=== PATIENT | male | born 1965 | race Caucasian/White ===

== ENCOUNTER 2020-03-27 09:32 | Emergency (ER) | payer OTHER, SELFPAY ==
--- NOTE | ~2020-03-27 | CT_ITS ---
EXAMINATION: CT brain wo con DATE: 03/27/2020 10:34 INDICATION: Seizure. TECHNIQUE: Computed tomography (CT) of the head was performed without intravenous contrast. The mA wa s adjusted according to patient size. Iterative reconstruction technique was employed. The dose-lengt h product was 681.00 mGy-cm. COMPARISON: None FINDINGS: There is an old lacunar infarct in left caudate nucleus. There is no intracranial hemorrhag e, acute infarction, or abnormal intracranial mass lesion. The ventricles are normal in size. The orb its are normal. There is mild mucosal thickening in the paranasal sinuses. The mastoid air cells are normal. IMPRESSION: 1. Old lacunar infarct in left caudate nucleus. Reviewed, dictated and finalized at location B.
--- NOTE | ~2020-03-27 | XR_ITS ---
EXAMINATION: 1. XR tibia fibula LT 2V 2. XR foot LT min 3V 3. XR ankle LT 2V DATE: 03/27/2020 10:17 INDICATION: Left lower leg, ankle, and foot injury. TECHNIQUE: 2 views of left tibia and fibula, 2 views of left ankle, and 4 views of left foot were obt ained. COMPARISON: Left tibia and fibula and ankle radiographs 07/13/2018 FINDINGS: LEFT ANKLE: There is a comminuted fracture of tibial plafond with incongruence of the articular surfa ce. There is an oblique fracture of distal fibula with medial aspect of the fracture line 2 mm proxim al to the level of the tibial plafond. The distal fracture fragment demonstrates 2 mm medial displace ment and 15 degrees posterior angulation. The talar dome is intact. There is ankle soft tissue swelli ng. LEFT TIBIA/FIBULA: There is an old healed fracture of distal tibial diaphysis with internal fixation with intramedullary lois and proximal and distal interlocking screws. Again seen are the fractures of the tibial plafond and distal fibula. There is mild left knee tricompartmental osteoarthritis. No kne e joint effusion. LEFT FOOT: Bone alignment is normal. No fracture. There is mild osteoarthritis of first metatarsophal angeal joint and some of the interphalangeal joints and midfoot joints. There is an enthesophyte at p osterior aspect of calcaneal tuberosity. IMPRESSION: 1. Comminuted fracture of the tibial plafond. 2. Oblique fracture of distal fibula. 3. Polyarticular osteoarthritis. Reviewed, dictated and finalized at location B. IMPRESSION: 1. Comminuted fracture of the tibial plafond. 2. Oblique fracture of distal fibula. 3. Polyarticular osteoarthritis. IMPRESSION: 1. Comminuted fracture of the tibial plafond. 2. Oblique fracture of distal fibula. 3. Polyarticular osteoarthritis.
--- NOTE | ~2020-03-27 | XR_ITS ---
EXAMINATION: XR chest 2V DATE: 03/27/2020 10:17 INDICATION: Seizure. TECHNIQUE: Frontal and lateral views of the chest were obtained. COMPARISON: None. FINDINGS: The chest demonstrates clear lungs without pneumonia, pleural effusion, or pneumothorax. Th e heart size is normal. IMPRESSION: 1. No acute cardiopulmonary disease. Reviewed, dictated and finalized at location B.
[2020-03-27 09:37] VITALS: BP 138/103; PULSE 123; RESP 18; TEMP 36.8; O2SAT 98
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
--- NOTE | 2020-03-27 09:56 | ECG_ITS ---
Measurements Intervals [place] Rate: 104 P: 61 OK: 148 QRS: -20 QRSD: 86 T: 63 QT: 356 QTc: 470 Interpretive Statements SINUS TACHYCARDIA BASELINE ARTIFACT- V4-V5 BORDERLINE ECG Electronically Signed On 03-27-2020 10:55:45 CDT by Dain Choudhary D.O.
[2020-03-27] MEDS: SODIUM CHLORIDE 0.9% IV 1,000 ML 999 ML IV CONT (10:21)
[2020-03-27] MEDS: MORPHINE SULFATE 4 MG/ML INJ IV PUSH ×2 (10:22→12:43)
[2020-03-27] MEDS: ONDANSETRON INJ 4 MG/2 ML VIAL IV PUSH (10:22)
[2020-03-27 10:36] LABS: Basophils Percent Auto 0.2 % (0.2-1.2); Eosinophils Percent Auto 0.2 % (0-4.4); Hematocrit 49.1 % (42.0-52.0); Hemoglobin 17.7 g/dL (14.0-18.0); Immature Granulocyte Absolute 0.04 K/mm3 (0.00-0.031); Immature Granulocyte Percent A 0.4 % (0-0.5); Immature Platelet Fraction Pct 9.9 % (0.9-11.2); Lymphocytes Absolute Auto 0.72 K/mm3 (0.9-3.2); Mean Corpuscular Hemoglobin 32.5 pg (26-34); Mean Corpuscular Volume 90.1 fl (80-100); Mean Platelet Volume 10.5 fl (7.4-10.4); Monocytes Absolute Auto 0.4 K/mm3 (0.1-0.6); Monocytes Percent Auto 4.2 % (2.6-8.5); Neutrophils Absolute Auto 7.9 K/mm3 (1.3-6.7); Platelet Count Result 62 k/mm3 (150-375); Red Blood Count 5.45 M/mm3 (4.6-6.20); Red Cell Distribution Width 15.6 % (11.5-14.5)
[2020-03-27 10:49] VITALS: BP 127/82; PULSE 102; RESP 15; O2SAT 98
[2020-03-27 11:03] LABS: Anion Gap 10 mmol/L (8-16); Blood Urea Nitrogen 15 mg/dL (9-20); Calcium 8.6 mg/dL (8.4-10.2); Carbon Dioxide 36 mmol/L (22-30); Chloride 81 mmol/L (98-107); Estimated Glomerular Filt Rate > 60; Glucose 97 mg/dL (75-110); Potassium 2.3 mmol/L (3.4-5.0); Sodium 127 mmol/L (137-145)
[2020-03-27] MEDS: POTASSIUM CHLORIDE 20 MEQ PACKET (FOR LIQUID) 40 MEQ PO (11:37)
[2020-03-27 12:03] LABS: Add Urine Microscopic? YES; Appearance Urine Clear (Clear); Bacteria Urine Trace /hpf; Bilirubin Urine Negative (Negative); Blood Urine Negative (Negative); Color Urine Yellow (Yellow); Glucose Urine UA Negative (Negative); Ketones Urine Negative (Negative); Leukocyte Esterase Ur Trace LEU/UL (Negative); Nitrate Urine Negative (Negative); Protein Urine Negative (Negative); RBC Urine 0-2 /hpf (0-2); Specific Grav Ur 1.011 (1.001-1.035); Squamous Epithelial Cell Urine Rare /hpf (Few); WBC Urine 0-3 /hpf
[2020-03-27 12:06] LABS: Amphetamine Screen Urine Negative (Negative); Barbiturate Screen Urine Negative (Negative); Benzodiazepines Screen Urine Negative (Negative); Cannabinoid Screen Urine Negative (Negative); Cocaine Screen Urine Negative (Negative); Methadone Screen Urine Negative (Negative); Opiate Screen Urine Positive (Negative); Phencyclidine Screen Urine Negative (Negative)
[2020-03-27 12:28] VITALS: BP 121/98; PULSE 95; RESP 18; O2SAT 99
--- NOTE | 2020-03-27 12:39 | PC.NURSE ---
Report called to [facility], Shellie GRAY took report
[2020-03-27 13:20] VITALS: BP 114/86; PULSE 96; RESP 18; O2SAT 100
== END 2020-03-27 13:21 | disposition short-term general hospital (02) ==
PROVIDERS: Emergency Provider Emergency Medicine; PCP Physician Assistant
DX: S82.872A Displaced pilon fracture of left tibia, initial encounter for closed fracture (principal); S82.832A Other fracture of upper and lower end of left fibula, initial encounter for closed fracture; I10 Essential (primary) hypertension; F17.210 Nicotine dependence, cigarettes, uncomplicated; R56.9 Unspecified convulsions; E87.6 Hypokalemia; R00.0 Tachycardia, unspecified; M19.072 Primary osteoarthritis, left ankle and foot; W06.XXXA Fall from bed, initial encounter
CPT/HCPCS: 29515; 36415; 70450; 71046; 73590; 73600; 73630; 80048; 80307; 81001; 85025; 85055; 93005; 96361; 96374; 96375; 96376; 99285; A9270; J0131; J2270; J2405; J7030

== ENCOUNTER 2020-08-31 22:12 | Emergency (ER) | payer OTHER, SELFPAY ==
--- NOTE | ~2020-08-31 | CT_ITS ---
EXAMINATION: CTA chest PE protocol DATE: 08/31/2020 23:38 INDICATION: Chest pain TECHNIQUE: Computed tomography (CT) pulmonary angiogram of the chest was performed with 100 mL Omnipa que-350 intravenous contrast. Additional 3D reconstructions utilizing coronal maximum intensity proje ction (MIP) were performed. Automated exposure control and iterative reconstruction technique were em ployed. The dose-length product was 284.68 mGy-cm. COMPARISON: None FINDINGS: Excellent contrast opacification of the pulmonary arteries. There is moderate streak artifact from de nse contrast in the superior vena cava and right atrium. Minimal scattered respiratory motion artifac t which does not significantly limit evaluation. No pulmonary embolism. Moderate to severe upper lobe predominant emphysema. No pneumonia, pulmonary edema, pleural effusion or pneumothorax. Heart size i s normal. Atherosclerotic coronary artery calcific lesions. No pericardial effusion. Thoracic aorta i s normal in caliber with no dissection. No pathologically enlarged thoracic lymphadenopathy. Diffuse hepatic steatosis. Chronic appearing mild anterior wedging at T8, T9, T11 and L1. Relatively recent-a ppearing anterior left fourth and fifth rib fractures. IMPRESSION: 1. No pulmonary embolism or other acute cardiopulmonary disease. 2. Moderate to severe emphysema. Fine 3. Relatively recent-appearing anterior left fourth and fifth rib fractures. Correlate for point tend erness approximately 4 cm lateral to the left nipple. Reviewed, dictated and finalized at location A. PRODUCTION SUPERVISOR IMPRESSION: 1. No pulmonary embolism or other acute cardiopulmonary disease. 2. Moderate to severe emphysema. Fine 3. Relatively recent-appearing anterior left fourth and fifth rib fractures. Co rrelate for point tenderness approximately 4 cm lateral to the left nipple.
--- NOTE | ~2020-08-31 | XR_ITS ---
EXAMINATION: XR chest 2V DATE: 08/31/2020 23:03 INDICATION: Midsternal chest pain TECHNIQUE: PA and lateral views of the chest were obtained. COMPARISON: Chest radiograph dated 03/27/20 FINDINGS: The lungs remain clear with no focal airspace opacities, pulmonary edema, pleural effusion or pneumot horax. The cardiomediastinal silhouette is normal. Thoracic kyphosis with severe spondylosis. IMPRESSION: 1. No acute cardiopulmonary disease. Reviewed, dictated and finalized at location A. RT SETTER
[2020-08-31 22:17] VITALS: BP 165/126; PULSE 113; RESP 23; TEMP 36.8; O2SAT 96
--- NOTE | 2020-08-31 22:27 | ECG_ITS ---
Measurements Intervals [place] Rate: 109 P: 76 CT: 142 QRS: -37 QRSD: 93 T: 87 QT: 336 QTc: 454 Interpretive Statements SINUS TACHYCARDIA LEFT AXIS DEVIATION BASELINE WANDER- I, II, AVR, AVL, V5-V6 ABNORMAL ECG Electronically Signed On 09-01-2020 8:04:29 SETUP TECHNICIAN by Dain Choudhary D.O.
[2020-08-31 22:30] VITALS: BP 180/125; PULSE 108; RESP 17; O2SAT 97
[2020-08-31] MEDS: ASPIRIN 81 MG CHEWABLE TABLET 324 MG PO (22:41)
[2020-08-31 22:42] LABS: Basophils Absolute Auto 0.1 K/mm3 (0.0-0.1); Basophils Percent Auto 0.6 % (0.2-1.2); Eosinophils Absolute Auto 0.1 K/mm3 (0-0.3); Eosinophils Percent Auto 1.2 % (0-4.4); Hematocrit 52.4 % (42.0-52.0); Hemoglobin 18.4 g/dL (14.0-18.0); Immature Granulocyte Absolute 0.04 K/mm3 (0.00-0.031); Immature Granulocyte Percent A 0.4 % (0-0.5); Lymphocytes Absolute Auto 2.81 K/mm3 (0.9-3.2); Lymphocytes Percent Auto 28.3 % (18.3-44.2); Mean Corpuscular HGB Conc 35.1 g/dl (32-36); Mean Corpuscular Hemoglobin 33.2 pg (26-34); Mean Corpuscular Volume 94.4 fl (80-100); Mean Platelet Volume 8.3 fl (7.4-10.4); Monocytes Absolute Auto 0.5 K/mm3 (0.1-0.6); Monocytes Percent Auto 4.6 % (2.6-8.5); Neutrophils Absolute Auto 6.5 K/mm3 (1.3-6.7); Neutrophils Percent Auto 64.9 % (45.5-73.1); Platelet Count Result 305 k/mm3 (150-375); Red Blood Count 5.55 M/mm3 (4.6-6.20); White Blood Count 9.9 K/mm3 (4.5-10.0)
[2020-08-31] MEDS: NITROGLYCERIN SL 0.4 MG TABLET SUBLINGUAL (22:43)
[2020-08-31 22:45] VITALS: BP 120/94; PULSE 122; RESP 22; O2SAT 96
[2020-08-31 22:52] LABS: INR 0.9; Prothrombin Time 12.3 Seconds (11.1-14.7)
[2020-08-31 22:53] LABS: Anion Gap 11 mmol/L (8-16); Blood Urea Nitrogen 7 mg/dL (9-20); Calcium 9.3 mg/dL (8.4-10.2); Carbon Dioxide 31 mmol/L (22-30); Chloride 102 mmol/L (98-107); Estimated Glomerular Filt Rate > 60; Glucose 111 mg/dL (75-110); Partial Thromboplastin Time 26.7 SECONDS (22.3-36.8); Potassium 4.1 mmol/L (3.4-5.0); Sodium 144 mmol/L (137-145)
--- NOTE | 2020-08-31 22:59 | ED.CHESTPAIN ---
HPI - Chest Pain General Chief Complaint: Chest Pain Stated Complaint: chest pain x1hr Time Seen by Provider: 08/31/20 22:20 History of Present Illness HPI narrative: Left sided chest pain since yesterday. No radiation. Sharp in quality. Associated with SOB. He has never had this pain before. No cough, congestion, fever. Related Data Home Medications Medication Instructions Recorded Confirmed amlodipine 5 mg PO 08/31/20 Allergies Allergy/AdvReac Type Severity Reaction Status Date / Time venom-honey bee Allergy Unknown Verified 07/13/18 18:15 Review of Systems Review of Systems: All systems reviewed & are unremarkable except as noted in HPI and below Constitutional: Constitutional: Denies chills Cardiovascular: Cardiovascular: Reports chest pain Respiratory: Respiratory: Reports dyspnea Gastrointestinal: Gastrointestinal: Denies abdominal pain Musculoskeletal: Musculoskeletal: Reports no additional musculoskeletal complaints Neurologic: Denies dizziness PMFSH Past Medical History Medical History History of fracture of leg Hypertension Leg fracture, left Seizure Family History Family History Father Family history of heart disease in male family member before age 55 Social History Social History Smoking status: Current every day smoker Tobacco type: cigarettes Alcohol intake: former Substance use: never Gender identity (if verbalized by the patient): Male Exam Const: General: no acute distress and alert; No acute distress Nutritional Appearance: average body habitus Orientation/consciousness: patient oriented x3 HENMT: Head: normal to inspection Chest: Chest palpation & inspection: tenderness rib (left) Resp: Effort & Inspection: normal respiratory effort and able to speak in complete sentences Cardio: Rate: tachycardic Rhythm: regular rhythm GI: Inspection: normal to inspection and non-distended GI Palp: No Tenderness to palpation present (GI) Skin: General skin exam: normal color Neuro: General: patient oriented x3, moves all extremities and CN's II-XI intact bilaterally Speech: Abnormal speech present slurred Motor exam (neuro): 5/5 motor strength present throughout Extrem: Left lower extremity: lower leg and ankle Details: pitting edema (left) Details: 1+ Course Vital Signs Vital signs: Vital Signs Temperature 36.8 C 08/31/20 22:17 Pulse Rate 113 H 08/31/20 22:17 Respiratory Rate 23 H 08/31/20 22:17 Blood Pressure 165/126 H 08/31/20 22:17 Pulse Oximetry 96 08/31/20 22:17 Temperature 36.8 C 08/31/20 22:17 Pulse Rate 110 H 09/01/20 01:30 Respiratory Rate 17 09/01/20 01:30 Blood Pressure 147/109 H 09/01/20 01:30 Pulse Oximetry 96 09/01/20 01:30 MDM - Chest Pain MDM Narrative Medical decision making narrative: CBC appears concentrated. Fluids given. Pain present for several hours prior to arrival and troponin w/i normal limits. Nothing acute on EKG. HE does have 2 new rib fractures. He does not know how he got these, but they are in the location where he is reporting pain. Differential Diagnosis Differential diagnosis: Likely fracture of rib, atypical chest pain, st elevation myocardial infarction and chest pain Medical Records Data Attestation: I reviewed the patient's medical records. Lab Data Attestation: I reviewed the patient's lab results. Result diagrams: 08/31/20 22:35 08/31/20 22:35 Labs: Lab Results 08/31/20 08/31/20 08/31/20 Range/Units 22:35 22:35 22:35 WBC 9.9 (4.5-10.0) K/mm3 RBC 5.55 (4.6-6.20) M/mm3 Hgb 18.4 H (14.0-18.0) g/dL Hct 52.4 H (42.0-52.0) % MCV 94.4 (80-100) fl MCH 33.2 (26-34) pg MCHC 35.1 (32-36) g/dl RDW 15.0 H (11.5-14.5) % Plt Count 305 D (150-
[2020-08-31 23:00] VITALS: BP 155/110; PULSE 118; RESP 18; O2SAT 94
[2020-08-31 23:05] LABS: Troponin I 0.021 ng/mL (0.000-0.034)
[2020-08-31 23:09] VITALS: BP 105/77; PULSE 126; RESP 20; O2SAT 95
--- NOTE | 2020-08-31 23:18 | PC.NURSE ---
2243 Pain 10/10 BP 180/125 TNG SL 0.4mg given 2250 Pain 10/10 BP 120/94 TNG SL 0.4mg given 2300 Back from Xray--BP 155/110 2301 Pain 10/10 TNG SL 0.4mg given 2305 BP 105/77
[2020-08-31 23:39] VITALS: BP 165/104; PULSE 109; RESP 17; O2SAT 95
[2020-08-31] MEDS: SODIUM CHLORIDE 0.9% IV 1,000 ML 999 ML IV CONT (23:49)
[2020-09-01 00:01] VITALS: BP 158/118; PULSE 106; RESP 22; O2SAT 95
[2020-09-01 00:31] VITALS: BP 155/112; PULSE 112; RESP 17; O2SAT 96
[2020-09-01] MEDS: HYDROcodone/acetaminophen (*CRX) 5-325 MG TABLET 1 TAB PO (00:57)
[2020-09-01 01:01] VITALS: BP 119/106; PULSE 102; RESP 17
[2020-09-01 01:30] VITALS: BP 147/109; PULSE 110; RESP 17; O2SAT 96
== END 2020-09-01 01:30 | disposition home or self-care (01) ==
PROVIDERS: Emergency Provider Emergency Medicine; PCP Physician Assistant
DX: R07.89 Other chest pain (principal); S22.42XA Multiple fractures of ribs, left side, initial encounter for closed fracture; E86.0 Dehydration; J43.9 Emphysema, unspecified; I10 Essential (primary) hypertension; F17.210 Nicotine dependence, cigarettes, uncomplicated; R00.0 Tachycardia, unspecified; R94.31 Abnormal electrocardiogram [ECG] [EKG]; X58.XXXA Exposure to other specified factors, initial encounter
CPT/HCPCS: 36415; 71046; 71275; 80048; 84484; 85025; 85610; 85730; 93005; 96360; 99284; A9270; J7030; Q9967

== ENCOUNTER 2020-12-26 14:53 | Emergency (ER) | payer OTHER, SELFPAY ==
[2020-12-26 15:01] VITALS: BP 149/90; PULSE 118; RESP 18; TEMP 36.4; O2SAT 96
[2020-12-26 15:16] LABS: Basophils Percent Auto 0.4 % (0.2-1.2); Eosinophils Absolute Auto 0.2 K/mm3 (0-0.3); Eosinophils Percent Auto 2.8 % (0-4.4); Hematocrit 43.2 % (42.0-52.0); Hemoglobin 15.2 g/dL (14.0-18.0); Immature Granulocyte Absolute 0.03 K/mm3 (0.00-0.031); Immature Granulocyte Percent A 0.4 % (0-0.5); Immature Platelet Fraction Pct 3.4 % (0.9-11.2); Lymphocytes Percent Auto 24.2 % (18.3-44.2); Mean Corpuscular HGB Conc 35.2 g/dl (32-36); Mean Corpuscular Hemoglobin 33.2 pg (26-34); Mean Corpuscular Volume 94.3 fl (80-100); Mean Platelet Volume 9.1 fl (7.4-10.4); Monocytes Absolute Auto 0.4 K/mm3 (0.1-0.6); Monocytes Percent Auto 5.2 % (2.6-8.5); Neutrophils Absolute Auto 5.6 K/mm3 (1.3-6.7); Platelet Count Result 146 k/mm3 (150-375); Red Blood Count 4.58 M/mm3 (4.6-6.20); Red Cell Distribution Width 15.9 % (11.5-14.5); White Blood Count 8.3 K/mm3 (4.5-10.0)
[2020-12-26 15:28] LABS: Anion Gap 10 mmol/L (8-16); Blood Urea Nitrogen 10 mg/dL (9-20); Calcium 9.3 mg/dL (8.4-10.2); Carbon Dioxide 28 mmol/L (22-30); Chloride 97 mmol/L (98-107); Estimated CRCL calculation 68 ml/min; Estimated Glomerular Filt Rate > 60; Glucose 150 mg/dL (75-110); Potassium 2.7 mmol/L (3.4-5.0); Sodium 135 mmol/L (137-145)
[2020-12-26 15:51] VITALS: BP 132/101; PULSE 117; RESP 18; O2SAT 96
[2020-12-26] MEDS: POTASSIUM CHLORIDE 20 MEQ TABLET 40 MEQ PO (16:05)
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
--- NOTE | 2020-12-26 17:01 | PC.NURSE ---
Pt states he was at pre-op screening L foot orthopedic revision, was hypertensive and needed provider eval to get BP under control. Pt denies CP/SOB/headache/blurred vision/N/V. States the morelos of my L leg hurts, I'm messing with the screws
[2020-12-26 17:05] VITALS: BP 160/121; PULSE 110; RESP 17; O2SAT 98
[2020-12-26 18:19] VITALS: BP 160/100; PULSE 110; RESP 16; O2SAT 100
== END 2020-12-26 18:20 | disposition home or self-care (01) ==
PROVIDERS: Emergency Medicine; Emergency Provider Emergency Medicine
DX: E87.6 Hypokalemia (principal); I10 Essential (primary) hypertension; F17.210 Nicotine dependence, cigarettes, uncomplicated; G40.909 Epilepsy, unspecified, not intractable, without status epilepticus
CPT/HCPCS: 36415; 80048; 85025; 85055; 99283; A9270

== ENCOUNTER 2021-04-03 18:18 | Emergency (ER) | payer OTHER, SELFPAY ==
--- NOTE | ~2021-04-03 | CT_ITS ---
EXAMINATION: CT brain wo con DATE: 04/03/2021 19:29 INDICATION: Slurred speech. Loss of consciousness. History of cerebrovascular accident. TECHNIQUE: Computed tomography (CT) of the head was performed without intravenous contrast. The mA wa s adjusted according to patient size. Iterative reconstruction technique was employed. Exam dose: 68 1.00 mGy-cm total exam DLP. COMPARISON: 03/27/2020 CT brain FINDINGS: No intracranial mass lesion or hemorrhage or recent cerebrovascular accident. No midline sh ift or mass effect effect. Minimal bilateral basal ganglia calcification. Bilateral carotid siphon in ternal carotid artery calcifications. There is moderately prominent cerebral and cerebellar volume loss. No subdural or epidural hematoma. No fracture or bone destruction of the cranial vault. The mastoid air cells and included paranasal si nuses are normally developed and aerated. IMPRESSION: No acute intracranial finding or significant change since 03/27/2020 Reviewed, dictated and finalized at Location A. Reviewed, dictated and finalized at location A.
[2021-04-03 18:15] VITALS: BP 131/88; PULSE 108; RESP 16; TEMP 37; O2SAT 96
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
[2021-04-03 19:09] LABS: Basophils Absolute Auto 0.1 K/mm3 (0.0-0.1); Basophils Percent Auto 0.7 % (0.2-1.2); Eosinophils Absolute Auto 0.2 K/mm3 (0-0.3); Eosinophils Percent Auto 1.7 % (0-4.4); Hematocrit 38.2 % (42.0-52.0); Hemoglobin 12.4 g/dL (14.0-18.0); Immature Granulocyte Absolute 0.04 K/mm3 (0.00-0.031); Immature Granulocyte Percent A 0.5 % (0-0.5); Lymphocytes Absolute Auto 2.09 K/mm3 (0.9-3.2); Mean Corpuscular HGB Conc 32.5 g/dl (32-36); Mean Corpuscular Hemoglobin 33.2 pg (26-34); Mean Corpuscular Volume 102.1 fl (80-100); Mean Platelet Volume 8.3 fl (7.4-10.4); Monocytes Absolute Auto 0.3 K/mm3 (0.1-0.6); Monocytes Percent Auto 3.9 % (2.6-8.5); Neutrophils Percent Auto 69.2 % (45.5-73.1); Platelet Count Result 331 k/mm3 (150-375); Red Blood Count 3.74 M/mm3 (4.6-6.20); Red Cell Distribution Width 15.5 % (11.5-14.5); White Blood Count 8.7 K/mm3 (4.5-10.0)
[2021-04-03 19:20] LABS: Alanine Aminotransferase 35 U/L (4-50); Albumin Level 3.4 g/dL (3.5-5.1); Alkaline Phosphatase 134 U/L (38-126); Anion Gap 8 mmol/L (8-16); Aspartate Amino Transferase 58 U/L (17-59); Bilirubin,Total 0.3 mg/dL (0.2-1.3); Blood Urea Nitrogen 11 mg/dL (9-20); Calcium 8.5 mg/dL (8.4-10.2); Carbon Dioxide 20 mmol/L (22-30); Chloride 107 mmol/L (98-107); Estimated CRCL calculation 86 ml/min; Estimated Glomerular Filt Rate > 60; Glucose 107 mg/dL (65-110); Potassium 4.3 mmol/L (3.4-5.0); Sodium 135 mmol/L (137-145)
[2021-04-03] MEDS: KETOROLAC 30 MG/ML VIAL (*BKC) IV PUSH (20:09)
[2021-04-03 20:10] VITALS: BP 146/99; PULSE 94; RESP 18; O2SAT 97
[2021-04-03 20:20] LABS: Ethanol 320 mg/dL (<10)
[2021-04-03] MEDS: SODIUM CHLORIDE 0.9% IV 1,000 ML 999 ML IV CONT (20:25)
[2021-04-03 21:24] VITALS: BP 139/85; PULSE 89; RESP 18; O2SAT 97
== END 2021-04-03 21:27 | disposition home or self-care (01) ==
PROVIDERS: Physician Assistant; Emergency Provider Family Medicine
DX: F10.220 Alcohol dependence with intoxication, uncomplicated (principal); I10 Essential (primary) hypertension; F17.210 Nicotine dependence, cigarettes, uncomplicated; Z86.73 Personal history of transient ischemic attack (TIA), and cerebral infarction without residual deficits; Y90.8 Blood alcohol level of 240 mg/100 ml or more
CPT/HCPCS: 36415; 70450; 80053; 80307; 85025; 96361; 96374; 99284; J1885; J7030

== ENCOUNTER 2021-11-24 14:43 | Emergency (ER) | payer OTHER, SELFPAY ==
[2021-11-24] VITALS (17 sets, daily range): BP systolic 73–150; BP diastolic 54–103; PULSE 84–113; RESP 16–22; TEMP 36.6; O2SAT 92–100
--- NOTE | ~2021-11-24 | XR_ITS ---
EXAMINATION: XR chest 1V Exam Date/Time: 11/24/2021 15:30 CDT CLINICAL HISTORY: syncope,hx seizures and hypotension Comparison: 08/31/2020. RESULT: Lines, tubes, and devices: None. Lungs and pleura: Clear. Cardiomediastinal silhouette: Stable cardiomediastinal silhouette. Other: No acute osseous or upper abdominal finding. IMPRESSION: No acute cardiopulmonary process. Reviewed, dictated and finalized at location K.
--- NOTE | ~2021-11-24 | CT_ITS ---
EXAMINATION: CT brain wo con DATE: 11/24/2021 15:51 INDICATION: Ground-level fall, loss of consciousness. TECHNIQUE: Computed tomography (CT) of the head was performed without intravenous contrast. The mA wa s adjusted according to patient size. Iterative reconstruction technique was employed. The dose-lengt h product was 681.00 mGy-cm. COMPARISON: 04/03/2021. FINDINGS: No acute intracranial hemorrhage or extra-axial fluid collection. No hydrocephalus, mass, or herniation. No acute ischemic infarct. Unremarkable dural venous sinus attenuation. No acute osseous abnormality. Trace right mastoid effusion, without evidence of temporal bone injury. Otherwise the aerated spaces are clear. Mild atrophy. Intracranial arterial calcifications. Minimal nasal ganglia calcification. IMPRESSION: No acute intracranial process. Reviewed, dictated and finalized at location K.
--- NOTE | ~2021-11-24 | CT_ITS ---
EXAMINATION: CT chest abdomen pelvis w con DATE: 11/24/2021 18:35 INDICATION: Trauma fall, hypotension. TECHNIQUE: Computed tomography (CT) of the chest, abdomen, and pelvis was performed with 100 mL Omnip aque-350 intravenous contrast. Automated exposure control and iterative reconstruction technique were employed. The dose-length product was 745.05 mGy-cm. COMPARISON: 08/31/2020. FINDINGS: CHEST: No thoracic aortic injury. No mediastinal hematoma. No pericardial effusion. No acute lung injury. No pleural effusion or pneumothorax. Erythematous change. Lingular scar. Coronary and aortic valve calcifications. ABDOMEN/PELVIS: No solid organ injury. No evidence of bowel or mesenteric injury. No free fluid or free air. No retroperitoneal hematoma. Pelvic contents are atraumatic. Marked bladder distention. Steatosis. Stable intra and extrahepatic biliary duct dilatation. Diverticulosis. Atherosclerotic dis ease of the aorta and branch vessels. MUSCULOSKELETAL: Acute nondisplaced fractures of the left anterior sixth and ninth ribs. Comminuted left intertrochant facundo femoral fracture. Lytic lesion in the left iliac wing. No fracture or traumatic malalignment of the thoracic or lumbar spine. IMPRESSION: Multiple nondisplaced acute anterior left lower rib fractures. Comminuted left intertrochanteric femo ral fracture. Marked bladder distention. No other acute traumatic process detected in the chest, abdomen, or pelvis. Left iliac wing lesion, r ecommend nonemergent outpatient MRI of the pelvis with bone mass protocol for further evaluation. Reviewed, dictated and finalized at location K. IMPRESSION: Multiple nondisplaced acute anterior left lower rib fractures. Comminuted left intertrochanteric femoral fracture. Marked bladder distention. No other acute traumatic process detected in the chest, abdomen, or pelvis. Lef t iliac wing lesion, recommend nonemergent outpatient MRI of the pelvis with lily ne mass protocol for further evaluation.
--- NOTE | ~2021-11-24 | XR_ITS ---
EXAM: XR hip LT 2V w AP pelvis HISTORY: syncopal episode, generalized pain to left hip COMPARISON: None available FINDINGS: Multiple surgical clips in the left pelvis. Left proximal femoral fracture, likely intertr ochanteric, with significant medial angulation. No other fracture detected. No dislocation. Degenerat kenia changes in the lumbar spine. Partially visualized bowel gas pattern is normal. IMPRESSION: Angulated left intertrochanteric fracture. Reviewed, dictated and finalized at location K.
--- NOTE | ~2021-11-24 | CT_ITS ---
EXAMINATION: CT cervical spine wo con DATE: 11/24/2021 15:51 INDICATION: TECHNIQUE: Computed tomography (CT) of the cervical spine was performed without intravenous contrast. The dose-length product was 314.24 mGy-cm. COMPARISON: None FINDINGS: Counting reference: Craniocervical junction. There are 7 cervical type vertebral bodies. Anatomic Variants: None. Alignment: Alignment is anatomic. Craniocervical junction: Craniocervical junction is normal. Osseous structures/fracture: No evidence of a lytic or blastic process in the visualized spine. N o evidence of acute or chronic fracture. Cervical soft tissues: The paraspinal soft tissues planes are maintained. Degenerative changes: Multilevel mild-moderate degenerative disc disease. No severe central canal or neural foraminal narrowing. IMPRESSION: No acute fracture or traumatic malalignment in the cervical spine. Reviewed, dictated and finalized at location K.
--- NOTE | 2021-11-24 14:53 | ECG_ITS ---
Measurements Intervals [place] Rate: 90 P: 66 [place]: 143 QRS: 46 QRSD: 89 T: 73 QT: 395 QTc: 485 Interpretive Statements SINUS RHYTHM WITH SINUS ARRHYTHMIA SEPTAL MYOCARDIAL INFARCTION , PROBABLY OLD [40+ ms Q WAVE IN V1/V2] ABNORMAL ECG COMPARED TO ECG 08/31/2020 22:19:47 SINUS RHYTHM NOW PRESENT SINUS ARRHYTHMIA NOW PRESENT MYOCARDIAL INFARCT FINDING NOW PRESENT Electronically Signed On 11-25-2021 13:54:03 CDT by Howard Lin M.D.
[2021-11-24 15:13] LABS: Glucose Point of Care 89 mg/dl (65-105)
[2021-11-24] MEDS: SODIUM CHLORIDE 0.9% IV 500 ML 999 ML IV CONT ×2 (15:13→18:10)
--- NOTE | 2021-11-24 15:39 | ED.SYNCOPE ---
HPI - Syncope General Chief Complaint: Syncope Stated Complaint: syncope vs seizure Time Seen by Provider: 11/24/21 14:52 Source: patient History of Present Illness HPI narrative: Patient presents with a syncopal event. 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 The event was witnessed by a wireless store manager and EMS was called. Patient is awake at the time of EMS arrival they noted he was hypotensive and brought to the ER for evaluation. Reports a headache on the back of his head and his most significant pain is on his left hip he is unable to move it due to pain. Pain is achy/sharp, constant, radiates down his leg. Related Data Home Medications Medication Instructions Recorded Confirmed gabapentin 04/03/21 04/03/21 lisinopril 04/03/21 potassium chloride meq PO 04/03/21 trazodone 04/03/21 zolpidem 04/03/21 Allergies Allergy/AdvReac Type Severity Reaction Status Date / Time venom-honey bee Allergy Unknown Swelling Verified 04/03/21 18:34 Review of Systems Review of Systems: CONSTITUTIONAL: Denies fever, chills, or sweats. EYES: Denies visual changes, redness, or discharge. ENT: Denies rhinorrhea, congestion, sore throat, or otalgia. CARDIOVASCULAR: Denies chest pain, palpitations, or edema. RESPIRATORY: Denies cough or dyspnea. GASTROINTESTINAL: Denies abdominal pain, nausea, vomiting, or diarrhea. GENITOURINARY: Denies dysuria or hematuria. SKIN: Denies rash or itching. MUSCULOSKELETAL: Denies back pain, or myalgia. NEUROLOGIC: Denies numbness, dizziness, or weakness. PSYCHIATRIC: Denies anxiety or depression. All systems reviewed & are unremarkable except as noted in HPI and below PMFSH Past Medical History Medical History History of fracture of leg Hypertension Leg fracture, left Seizure Family History Family History Father Family history of heart disease in male family member before age 55 Social History Social History Smoking packs per day: 1 Smoking cigarettes per day: 20.0 Smoking status: Current every day smoker Tobacco type: cigarettes Alcohol intake: current Alcohol use details: daily drinker, vodka Substance use: never Gender identity (if verbalized by the patient): Male Exam Narrative: GENERAL: Well-appearing, well-nourished, and in no acute distress. HEAD: Normocephalic, mild tenderness to palpation on the occiput no active bleeding mild edema EYES: PERRLA and EOMI. ENT: Nares clear, no rhinorrhea or epistaxis. Mucous membranes moist. NECK: Supple. No masses. No JVD CHEST: Clear to auscultation. No respiratory distress. No wheezes rales or rhonchi HEART: Regular rate and rhythm. No murmur heard. Normal peripheral pulses. ABDOMEN: Soft, nontender, nondistended, normal active bowel sounds. EXTREMITIES: Unable to move at the left hip due to pain there is diffuse tenderness cap refill less than 2 seconds sensation intact to light touch on the left foot. SKIN: Warm, dry, no rash. NEURO: No focal deficits. Alert and oriented x3. PSYCH: Normal mood and affect. Course Reevaluation(s) Reevaluation #1: Patient is resting comfortably after morphine and Dilaudid. Case cussed with Dr. Joe Clarke on-call and due to the treatment fracture patient be better served at a trauma facility. Patient was transferred to [facility] for further evaluation accepted by Dr. Palomino. Patient comfortable with transfer plans. Date: 11/24/21 Time: 19:28 Vital Signs Vital signs: Vital Signs Temperature 36.6 C 11/24/21 14:49 Pulse Rate 99 11/24/21 14:49 Respiratory Rate 18 11/24/21 14:49 Blood Pressure 73/54 L 11/24/21 14:49 Pulse Oximetry 100 11/24/21 14:49 Temperature 36.6
[2021-11-24] MEDS: MORPHINE SULFATE (*CRX) 4 MG/ML INJ IV PUSH ×3 (16:06→17:32)
[2021-11-24] MEDS: SODIUM CHLORIDE 0.9% IV 1,000 ML 999 ML IV CONT (16:06)
[2021-11-24 16:14] LABS: Basophils Percent Auto 0.1 % (0.2-1.2); Eosinophils Percent Auto 0.4 % (0-4.4); Hematocrit 38.5 % (42.0-52.0); Immature Granulocyte Absolute 0.06 K/mm3 (0.00-0.031); Immature Granulocyte Percent A 0.7 % (0-0.5); Immature Platelet Fraction Pct 7.5 % (0.9-11.2); Lymphocytes Absolute Auto 1.13 K/mm3 (0.9-3.2); Lymphocytes Percent Auto 12.4 % (18.3-44.2); Mean Corpuscular HGB Conc 33.8 g/dl (32-36); Mean Corpuscular Hemoglobin 32.9 pg (26-34); Mean Corpuscular Volume 97.5 fl (80-100); Mean Platelet Volume 10.2 fl (7.4-10.4); Monocytes Absolute Auto 0.5 K/mm3 (0.1-0.6); Monocytes Percent Auto 5.1 % (2.6-8.5); Neutrophils Absolute Auto 7.4 K/mm3 (1.3-6.7); Neutrophils Percent Auto 81.3 % (45.5-73.1); Nucleated Red Blood Cells Perc 0.2 % (0.0-0.2); Platelet Count Result 100 k/mm3 (150-375); Red Blood Count 3.95 M/mm3 (4.6-6.20); Red Cell Distribution Width 19.6 % (11.5-14.5); White Blood Count 9.1 K/mm3 (4.5-10.0)
[2021-11-24 16:22] LABS: Alanine Aminotransferase 28 U/L (4-50); Albumin Level 3.2 g/dL (3.5-5.1); Alkaline Phosphatase 93 U/L (38-126); Anion Gap 11 mmol/L (8-16); Aspartate Amino Transferase 58 U/L (17-59); Bilirubin,Total 2.1 mg/dL (0.2-1.3); Blood Urea Nitrogen 17 mg/dL (9-20); Calcium 7.5 mg/dL (8.4-10.2); Carbon Dioxide 21 mmol/L (22-30); Chloride 99 mmol/L (98-107); Estimated CRCL calculation 48 ml/min; Estimated Glomerular Filt Rate 52; Glucose 98 mg/dL (65-110); Magnesium 1.2 mg/dL (1.6-2.3); Potassium 2.9 mmol/L (3.4-5.0); Sodium 131 mmol/L (137-145)
[2021-11-24 16:23] LABS: Ethanol 140 mg/dL (<10); Partial Thromboplastin Time 23.4 SECONDS (22.3-36.8)
[2021-11-24 16:25] LABS: Ovalocytes 1+ (NORMAL); Platelet Estimate Decreased (Adequate)
[2021-11-24] MEDS: POTASSIUM CHLORIDE 20 MEQ PACKET (FOR LIQUID) 40 MEQ PO (16:38)
[2021-11-24] MEDS: HYDROmorphone HCL INJ (*CRX) 1 MG/ML SYR 0.5 MG IV PUSH ×3 (17:46→21:59)
[2021-11-24 20:03] LABS: Add Urine Microscopic? YES; Appearance Urine Clear (Clear); Bilirubin Urine Negative (Negative); Blood Urine Negative (Negative); Color Urine Yellow (Yellow); Glucose Urine UA Negative (Negative); Ketones Urine Negative (Negative); Leukocyte Esterase Ur Negative LEU/UL (Negative); Nitrate Urine Negative (Negative); Protein Urine Negative (Negative); RBC Urine 0-2 /hpf (0-2); Specific Grav Ur 1.021 (1.001-1.035); WBC Urine 0-3 /hpf
[2021-11-24 20:13] LABS: Amphetamine Screen Urine Negative (Negative); Barbiturate Screen Urine Negative (Negative); Benzodiazepines Screen Urine Negative (Negative); Cannabinoid Screen Urine Negative (Negative); Cocaine Screen Urine Negative (Negative); Methadone Screen Urine Negative (Negative); Opiate Screen Urine Positive (Negative); Phencyclidine Screen Urine Negative (Negative)
[2021-11-25] VITALS: BP 139/92; PULSE 107; RESP 18; O2SAT 97
[2021-11-25] MEDS: HYDROmorphone HCL INJ (*CRX) 1 MG/ML SYR 0.5 MG IV PUSH (00:06)
== END 2021-11-25 00:17 | disposition short-term general hospital (02) ==
PROVIDERS: Emergency Provider Emergency Medicine; PCP Family Medicine
DX: R55 Syncope and collapse (principal); S22.42XA Multiple fractures of ribs, left side, initial encounter for closed fracture; S72.142A Displaced intertrochanteric fracture of left femur, initial encounter for closed fracture; I10 Essential (primary) hypertension; F17.210 Nicotine dependence, cigarettes, uncomplicated; R94.31 Abnormal electrocardiogram [ECG] [EKG]; W18.39XA Other fall on same level, initial encounter
CPT/HCPCS: 36415; 70450; 71045; 71260; 72125; 73502; 74177; 80053; 80307; 81001; 82948; 83735; 84146; 85025; 85055; 85610; 85730; 93005; 96361; 96374; 96375; 96376; 99285; A9270; J1170; J2270; J7030; J7040; Q9967